=== PATIENT | male | born 1970 | race Hispanic/Latino ===

== ENCOUNTER 2019-09-11 13:33 | Inpatient (IN) | payer OTHER ==
[~2019-09-11] VITALS: Ht 170.2 cm; Wt 80.6 kg
[2019-09-11] MEDS ORDERED: ASPIRIN 325 MG TABLET ONE (14:09)
[2019-09-11 14:18] LABS: BASOPHILS % (AUTO) 0.2 % (0.0-5.0); EOSINOPHILS % (AUTO) 0.7 % (0.0-8.0); HEMATOCRIT 46.9 % (42-54); LYMPHOCYTES % (AUTO) 47.6 % (21.0-51.0); MEAN CORPUSCULAR HEMOGLOBIN 30.7 pg (27.0-33.0); MEAN CORPUSCULAR HGB CONC 35.2 g/dL (32.0-36.0); MEAN CORPUSCULAR VOLUME 87.3 fL (79-99); MONOCYTES % (AUTO) 7.4 % (3.0-13.0); NEUTROPHILS % (AUTO) 44.1 % (40.0-77.0); PLATELET COUNT (AUTO) 235 K/uL (130-400); RED BLOOD CELL COUNT(AUTO) 5.37 MIL/uL (4.50-6.20); RED CELL DISTRIBUTION WIDTH 12.6 % (11.0-15.5); WHITE BLOOD COUNT (AUTO) 5.6 K/uL (4.8-10.8)
[2019-09-11 14:26] LABS: CREATININE 1.1 mg/dL (0.5-1.5)
[2019-09-11 14:30] LABS: ALBUMIN 4.4 g/dL (3.5-5.0); BILIRUBIN,TOTAL 0.6 mg/dL (0.2-1.0); INR 0.93 (0.85-1.15); PARTIAL THROMBOPLASTIN TIME 25.8 SEC (26.3-35.5); PROTHROMBIN TIME 10.1 SEC (9.6-11.6); TOTAL PROTEIN, SERUM 8.7 g/dL (6.0-8.3)
[2019-09-11 16:00] VITALS: BP 127/87
[2019-09-11] MEDS ORDERED: PHARMACY COMMUNICATION MISC SCH (17:00)
[2019-09-11] MEDS ORDERED: ASPI-1197 PO (18:00)
[2019-09-11] MEDS ORDERED: LISI10TA7 PO (18:00)
[2019-09-11] MEDS ORDERED: ENOXAPARIN SODIUM 1 MG/KG SQ SCH (18:00)
[2019-09-11] MEDS: ENOXAPARIN SODIUM 80 MG/0.8 ML SQ SCH (18:06)
[2019-09-11 19:00] VITALS: BP 133/84
[2019-09-11 23:17] VITALS: BP_SYST 128; BP_SYST 148; BP_DIAS 100; BP_DIAS 85
[2019-09-11 23:18] VITALS: BP 156/105
[2019-09-12 03:42] VITALS: BP 127/81
[2019-09-12] MEDS: ENOXAPARIN SODIUM 80 MG/0.8 ML SQ SCH ×2 (05:55→16:05)
--- NOTE | 2019-09-12 06:40 | NUR ---
PATIENT UPDATE Slept well overnight, no complaints of any chest discomfort, no shortness of breath. Keeping npo post mn for a lexiscan stress test this am. Running NSR in the 60's to 70's in the tele monitor, no ectopies noted.
[2019-09-12 07:36] VITALS: BP 129/89
[2019-09-12] MEDS: LISINOPRIL 10 MG TABLET PO SCH (08:53)
[2019-09-12] MEDS ORDERED: ASPIRIN 325 MG TABLET PO SCH (09:00)
[2019-09-12 11:04] VITALS: BP 134/47
[2019-09-12] MEDS ORDERED: REGADENOSON 0.4 MG/5 ML PF SYG IVP SCH (11:45)
[2019-09-12 16:00] VITALS: BP 140/86
[2019-09-12] MEDS: CLOPIDOGREL BISULFATE 75 MG TAB PO SCH (16:04)
[2019-09-12] MEDS: ASPIRIN 81MG TAB.CHEW PO SCH (16:05)
[2019-09-12 19:00] VITALS: BP 119/79
--- NOTE | 2019-09-12 19:46 | NUR ---
D/C PLAN CM spoke to pt regarding d/c planning. Pt is [place] and lives with spouse. States spouse can assist in care if needed. CM provided community resources packet. Plan to home. No needs verbalized or identified. CM to f/u. Addendum: 09/12/19 at 1947 by SATHISH KING CM Amended: Links added.
[2019-09-12] MEDS ORDERED: ACETAMINOPHEN 325 MG TAB ONE (21:13)
[2019-09-12] MEDS ORDERED: ACETAMINOPHEN 325 MG TAB PO PRN (21:15)
[2019-09-12 23:00] VITALS: BP 127/81
[2019-09-13 03:00] VITALS: BP 113/76
[2019-09-13] MEDS: ENOXAPARIN SODIUM 80 MG/0.8 ML SQ SCH (06:10)
[2019-09-13 07:31] VITALS: BP 129/96
[2019-09-13] MEDS: CLOPIDOGREL BISULFATE 75 MG TAB PO SCH (08:07)
[2019-09-13] MEDS: ASPIRIN 81MG TAB.CHEW PO SCH (08:07)
[2019-09-13] MEDS: LISINOPRIL 10 MG TABLET PO SCH (08:07)
== END 2019-09-13 09:50 | disposition home or self-care (01) | DRG 313 ==
LOC: EDH 13:33 → EDHIP 13:34 → 3CH 17:08
PROVIDERS: ADMIT Internal Medicine; ATTEND Internal Medicine
DX: R07.9 Chest pain, unspecified (principal); I10 Essential (primary) hypertension; Z82.49 Family history of ischemic heart disease and other diseases of the circulatory system
CPT/HCPCS: 36415; 71045; 78452; 80053; 82550; 84484; 85025; 85610; 85730; 93005; 93017; 96374; 99291; A9500; G0378; J1650; J2785